=== PATIENT | male | born 1960 | race Caucasian/White ===

== ENCOUNTER → 2021-08-21 13:17 | Outpatient (CLI) | payer OTHER, MEDICAID, SELFPAY ==
--- NOTE | 2021-08-21 | DI.ECHO.S_ITS ---
[facility]+ [facility] +---------+ : : [address] : : : : [id number] : : : : Phone: [phone]---------+ Echocardiogram Report + + :Name: LIA STEVESNON Study Date: 08/21/2021 Height: 67 in : :[facility] ReadingLocation: Weight: 145 lb : : Gender: Male BSA: 1.8 m2 : :: 1960 Age: 60 yrs BP: 134/87 mmHg: :Reason For Study: Congestive Heart Failure : :Ordering Physician: Cristobal : :Remberto Madrid Performed By: Calderon Martinez : :Referring: CRISTOBAL MADRID : + + Interpretation Summary 1) Normal left ventricular size and thickness with low normal systolic function (EF 50-55%). 2) There are no obvious focal wall motion abnormalities noted but poor endocardial definition reduces the sensitivity for the detection of such. 3) Normal right ventricular size and function. 4) No significant valvular abnormalities noted. 5) No prior Echo available for comparison. Procedure: A two-dimensional transthoracic echocardiogram with color flow and Doppler was performed. The study quality was technically adequate. There is no prior echocardiogram noted for this patient. Left Ventricle: The left ventricle is normal in size and wall thickness. Left ventricular systolic function is low normal. The ejection fraction is estimated to be 50-55%. There are no obvious focal wall motion abnormalities noted but poor endocardial definition reduces the sensitivity for the detection of such. Right Ventricle: The right ventricle is normal in size and function. Atria: Both atria are normal in size. There is no Doppler evidence for an interatrial shunt. Mitral Valve: The mitral valve is normal in structure and function. There is trace mitral regurgitation. Aortic Valve: The aortic valve is normal in structure and function. There is no aortic valve stenosis. No aortic regurgitation is present. Tricuspid Valve: The tricuspid valve is normal in structure and function. There is mild tricuspid regurgitation. The right ventricular systolic pressure is estimated to be at least 30 mmHg based on an estimated right atrial pressure of 3 mm Hg. Pulmonic Valve: The pulmonic valve is normal in structure and function. There is no pulmonic valvular regurgitation. Great Vessels: The aortic root is normal size. The dimensions of the ascending aorta are normal. The IVC is of normal diameter and collapses greater than 50% with a sniff. This suggests a low right atrial pressure of 3 mm Hg. Pericardium/ Pleura There is no pericardial effusion. There is no pleural effusion. MMode/2D Measurements & Calculations LVIDd: 4.7 cm LVOT diam: 1.9 cm LVIDs: 3.6 cm Ao root diam: 2.9 cm FS: 23.7 % asc Aorta Diam: 3.2 cm IVSd: 0.85 cm LVPWd: 0.85 cm LV alexandre. diameter/BSA (cm/m^2): 2.6 LV sys. diameter/BSA (cm/m^2): 2.0 LA dimension: 2.8 cm RA long axis: 4.8 cm LA A2 area: 13.3 cm2 LA A4 area: 12.2 cm2 LA length (vol): 5.0 cm LA vol: 27.8 ml LA vol index: 15.8 ml/m2 LVLs ap4: 6.2 cm LVLd ap2: 6.5 cm LVLs ap2: 5.9 cm TAPSE_phl: 1.8 cm Doppler Measurements & Calculations Ao V2 max: 106.0 cm/sec LVOT Max Frederick: 93.3 cm/sec Ao V2 mean: 69.5 cm/sec LV V1 max P.5 mmHg Ao max P.0 mmHg LV V1 VTI: 16.9 cm Ao mean P.0 mmHg JOANIE(I,D): 2.6 cm2 Ao V2 VTI: 18.7 cm JOANIE(V,D): 2.5 cm2 sev ratio: 0.90 JOANIE indexed to BSA (cm^2/m^2): 1.5 MV E max frederick: 66.8 cm/sec TR max frederick: 258.5 cm/sec MV A max frederick: 70.7 cm/sec TR max P.8 mmHg MV E/A: 0.94 PA V2 max: 90.4 cm/sec Med Peak E' Frederick: 7.2 cm/sec PA V2 mean: 57.7 cm/sec E/E' med: 9.3 PA mean P.0 mmHg Lat Peak E' Frederick: 7.7 cm/sec PA pr(Accel): 54.2 mmHg E/E' lat: 8.6 E/e' average: 9.0 MV dec time: 0.27 sec SV(LVOT): 47.9 ml AV VR_phl: 0.88 JOANIE(VTI)/BSA_phl: 1.5 MV P1/2t-pr_phl: 80.0 msec Reading Physician:04:24 PM
== END ==
PROVIDERS: Referring Provider Internal Medicine Cardiovascular Disease; Visit Provider Internal Medicine Cardiovascular Disease
DX: I50.20 Unspecified systolic (congestive) heart failure (principal)
CPT/HCPCS: 93306

== ENCOUNTER → 2022-01-21 10:58 | Outpatient (CLI) | payer OTHER, MEDICAID, SELFPAY ==
[2022-01-21 13:18] LABS: COVID19 -Nasal RAPID Negative (Negative)
== END ==
PROVIDERS: Visit Provider Family Medicine Sleep Medicine
DX: Z20.822 Contact with and (suspected) exposure to COVID-19 (principal)
CPT/HCPCS: 87635; C9803

== ENCOUNTER → 2022-03-30 09:44 | Outpatient (CLI) | payer OTHER, MEDICAID, SELFPAY ==
[2022-03-30 11:30] LABS: Add Manual Diff / Slide Review NO; Basophils Absolute Auto 100 /uL (0-100); Eosinophils Absolute Auto 100 /uL (0-450); Eosinophils Percent Auto 1.5 % (2-4); Hematocrit 38.6 % (41-53); Hemoglobin 13.5 g/dL (13.5-17.5); Lymphocytes Absolute Auto 1600 /uL (1100-4500); Lymphocytes Percent Auto 22.1 % (25-40); Mean Corpuscular HGB Conc 34.9 % (30-36); Mean Corpuscular Hemoglobin 36.6 PG (26-34); Monocytes Absolute Auto 600 /uL (0-900); Monocytes Percent Auto 8.9 % (3-14); Neutrophils Absolute Auto 4800 /uL (1500-7000); Neutrophils Percent Auto 66.5 % (50-75); Platelet Count 218 X10^3/uL (150-400); Red Blood Cell Count 3.68 X10^6/uL (4.5-5.9); Red Cell Distribution Width 13.6 % (11.6-14.8); White Blood Cell Count 7.3 X10^3/uL (4.5-11.0)
[2022-03-30 11:48] LABS: BUN Creatinine Ratio 26.8 (6-22); Blood Urea Nitrogen 30 mg/dL (9-20); Carbon Dioxide 26 mmol/L (22-32); Chloride 102 mmol/L (98-107); Cholesterol 145 mg/dL (140-199); Estimated Glomerular Filt Rate > 60 mL/min (>60); Glucose 108 mg/dL (80-110); HDL Cholesterol 93 mg/dL (40-60); HEMOLYSIS < 15 (0-50); LDL Cholesterol Calculated 44 mg/dL (<100); Sodium 135 mmol/L (137-145); Triglycerides 40 mg/dL (35-150)
[2022-03-30 11:52] LABS: Potassium 6.2 mmol/L (3.4-5.1)
== END ==
PROVIDERS: Referring Provider Internal Medicine Cardiovascular Disease; Visit Provider Internal Medicine Cardiovascular Disease
DX: I10 Essential (primary) hypertension (principal); I50.20 Unspecified systolic (congestive) heart failure
CPT/HCPCS: 36415; 80048; 80061; 85025

== ENCOUNTER → 2022-04-13 11:42 | Outpatient (CLI) | payer OTHER, MEDICAID, SELFPAY ==
[2022-04-13 12:53] LABS: COVID19 -Nasal RAPID Negative (Negative)
== END ==
PROVIDERS: Visit Provider Family Medicine Sleep Medicine
DX: Z20.822 Contact with and (suspected) exposure to COVID-19 (principal)
CPT/HCPCS: 87635; C9803

== ENCOUNTER → 2022-04-14 10:22 | Outpatient (CLI) | payer OTHER, MEDICAID, SELFPAY ==
--- NOTE | 2022-04-14 | DI.NM.S_ITS ---
PROCEDURE: NM CONNIE PERF SPECT REST & STR Rest and exercise myocardial perfusion SPECT with gated imaging and ejection fraction RADIOPHARMACEUTICAL: 12.3 mCi Tc-99m sestamibi IV at rest and 25.0 mCi Tc-99m sestamibi IV at peak exercise. A one day-protocol was performed. INDICATIONS: Unspecified systolic (congestive) heart failure TECHNIQUE: Radiopharmaceutical was injected at peak stress test, and also at rest. SPECT images were obtained. SPECT myocardial perfusion images were displayed in short axis, horizontal long axis, and vertical long axis views. Gated images were reviewed using [employer] software. COMPARISON: None. CARDIAC STRESS: A standard Adrien treadmill exercise tolerance test was performed by the patient under the supervision of an attending staff. The patient exercised for 3 minutes and 20 seconds; functional aerobic impairment (IDA) is +46%. Hemodynamic data: There is normal blood pressure and heart rate response to exercise stress. Patient achieved 108% of maximum predicted heart rate at peak exercise. Symptoms: Patient denied chest pain during exercise. EKG: With exercise, there was a rate related LBBB that made ST segments difficult to interpret; no ectopy. FINDINGS: Raw data: There is good myocardial labeling by radiotracer. No significant motion artifacts. Scua-je-xwtdw ratio is 0.21 (normal is less than 0.38 for sestamibi tracer, and less than 0.50 for thallium tracer). Left ventricle function: Gated images demonstrate normal left ventricle wall thickening. No segmental wall motion abnormality. No transient ischemic dilation; TID is 0.95 (normal less than 1.3). The left ventricle resting end-diastolic volume is 71 mL. Left ventricle stress ejection fraction is 74%; normal values are above 45%. Myocardial perfusion: There is normal distribution of activity in the left and right ventricular myocardium. No fixed or reversible perfusion defects. IMPRESSION: Low risk, normal treadmill nuclear stress test 1) No perfusion evidence of ischemia or infarction. 2) Normal left ventricular size, wall motion, and systolic function (EF post stress 77%). 3) ECG non-diagnostic due to exercise induced LBBB. 4) No angina during the study. 5) No prior nuclear stress test available for comparison. Dictated by: Wilfred Madrid MD on 04/14/2022 at 16:35 Approved by: Wilfred Madrid MD on 04/14/2022 at 16:38
--- NOTE | 2022-04-14 15:12 | PM.TREADMILL ---
Cardiac Stress Test Report Referral & Results Date Patient Seen: 04/14/22 Time Patient Seen: 15:12 Requesting provider: Wilfred Madrid Indication: Heart failure with reduced EF Rest ECG: Sinus rhythm with transient LBBB, T wave inversion in II, III, aVF, V6 Procedure Note: Standard Adrien protocol, 4:00, 4.6 METS Reduced exercise capacity, IDA +46% Normal hemodymanic response to exercise No chest pain or anginal symptoms No significant ST changes at peak exercise No ectopy Impression: Equivocal exercise stress test Please note: Actual ECG tracings can be found in the PACS system.
== END ==
PROVIDERS: Referring Provider Internal Medicine Cardiovascular Disease; Visit Provider Internal Medicine Cardiovascular Disease
DX: I50.20 Unspecified systolic (congestive) heart failure (principal)
CPT/HCPCS: 78452; 93017; A9502